=== PATIENT | male | born 1980 | race Caucasian/White ===

== ENCOUNTER 2022-10-03 04:26 | Emergency (ER) | payer OTHER ==
[2022-10-03 05:01] VITALS: BMI 25.1
[2022-10-03] MEDS ORDERED: ACETAMINOPHEN 1000 MG/100 ML BAG IVPB ONE (06:11)
[2022-10-03] MEDS ORDERED: SODIUM CHLORIDE 1,000 ML IV STA ×2 (06:11→12:20)
[2022-10-03 07:11] LABS: BASO % 0.6 % (0-2.0); EOS % 2.5 % (0-4.5); HEMATOCRIT 29.3 % (35.4-49); HEMOGLOBIN 9.7 GM/dL (11.7-16.9); LYMPH % 16.5 % (8-40); MCHC 33.2 g/dl (32.0-35.9); MEAN CELL VOLUME 87.3 fl (80-96); MEAN PLT VOLUME 8.9 fl (7.5-11.1); MONO % 9.1 % (3.8-10.2); NEUT % 71.3 % (42.8-82.8); PLATELET COUNT 325 10^3/uL (134-434); RBC 3.36 M/mm3 (4.00-5.60); RDW 13.7 % (11.9-15.9); WHITE BLOOD COUNT 8.8 K/mm3 (4.0-10.0)
[2022-10-03 07:29] LABS: CHLORIDE 103 mmol/L (98-107); SODIUM 137 mmol/L (136-145)
[2022-10-03 07:32] LABS: ALBUMIN 1.8 g/dl (3.4-5.0); BLOOD UREA NITROGEN 29.5 mg/dL (7-18); CALCIUM 8.7 mg/dL (8.5-10.1); CO2 27 mmol/L (21-32); GLUCOSE,RANDOM 124 mg/dL (74-106); LIPASE 438 U/L (73-393)
[2022-10-03 07:35] LABS: CREATININE 1.6 mg/dL (0.55-1.3); SGOT/AST 45 U/L (15-37); SGPT/ALT 20 U/L (13-61)
[2022-10-03 07:36] LABS: BILIRUBIN,TOTAL 0.4 mg/dL (0.2-1)
[2022-10-03 07:37] LABS: TOT PROT 6.2 g/dl (6.4-8.2)
[2022-10-03 07:38] LABS: ALK PHOS 88 U/L (45-117); ANION GAP 8 MMOL/L (8-16)
[2022-10-03] MEDS ORDERED: SODIUM PHOSPHATE/NA BIPHOS 133 ML ENEMA PR ONE (07:47)
[2022-10-03 12:19] LABS: EPI CELLS 3 /uL (0-25.1); HYALINE CASTS 0 /uL (0-3.1); PH,URINE 5.5 (5.0-8.0); URINE APPEARANCE CLOUDY; URINE BACTERIA 3824 /uL (0-1359); URINE BILIRUBIN NEGATIVE (NEGATIVE); URINE COLOR YELLOW; URINE GLUCOSE (UA) NEGATIVE (NEGATIVE); URINE KETONE NEGATIVE (NEGATIVE); URINE LEUK ESTERASE 3+ (NEGATIVE); URINE NITRITE NEGATIVE (NEGATIVE); URINE PROTEIN 3+ (NEGATIVE); URINE RBC 25 /uL (0-23.9); URINE UROBILINOGEN 0.2 mg/dL (0.2-1.0); URINE WBC 1601 /uL (0-25.8)
[2022-10-03] MEDS ORDERED: CEFTRIAXONE 1,000 MG in DEXTROSE 5%-WATER - 50 ML IVPB ONE (12:20)
[2022-10-03 12:47] LABS: BLOOD UREA NITROGEN 26.4 mg/dL (7-18)
[2022-10-03 12:49] LABS: CREATININE 1.4 mg/dL (0.55-1.3)
[2022-10-03] MEDS ORDERED: CEFTRIAXONE 1 GM/50 ML BAG ONE (13:06)
[2022-10-03 14:25] VITALS: BP 136/66; PULSE 60; RESP 18; TEMP 97.9
== END 2022-10-03 19:38 | disposition home or self-care (01) ==
LOC: JER 04:26 → UNDOADMOB 12:37 → JERBED 12:37 → UNDODISOB 13:01 → JER 19:38
PROC: 3E0333Z Introduction of Anti-inflammatory into Peripheral Vein, Percutaneous Approach (ICD-10-PCS; principal; 2022-10-03)
PROC: 3E033GC Introduction of Other Therapeutic Substance into Peripheral Vein, Percutaneous Approach (ICD-10-PCS; 2022-10-03)
PROC: 3E0337Z Introduction of Electrolytic and Water Balance Substance into Peripheral Vein, Percutaneous Approach (ICD-10-PCS; 2022-10-03)
PROC: 3E0337Z Introduction of Electrolytic and Water Balance Substance into Peripheral Vein, Percutaneous Approach (ICD-10-PCS; 2022-10-03)
DX: K56.7 Ileus, unspecified (principal); K59.00 Constipation, unspecified; R31.9 Hematuria, unspecified
CPT/HCPCS: 36415; 71045-TC-FY; 74176-TC; 80048; 80053; 81003; 83690; 85025; 87086; 87186; 93005; 93010; 99285-25

== ENCOUNTER 2022-10-04 06:46 | Emergency (ER) | payer OTHER ==
[2022-10-04 06:53] VITALS: RESP 18; BMI 25.8
[2022-10-04] MEDS ORDERED: LACTATED RINGERS SOLUTION 1000 ML INFUS.BAG IV ONE (09:38)
[2022-10-04 11:14] LABS: HEMATOCRIT 35.3 % (35.4-49); HEMOGLOBIN 11.4 GM/dL (11.7-16.9); MCHC 32.4 g/dl (32.0-35.9); MEAN CELL VOLUME 86.6 fl (80-96); MEAN PLT VOLUME 8.8 fl (7.5-11.1); PLATELET COUNT 320 10^3/uL (134-434); RBC 4.08 M/mm3 (4.00-5.60); RDW 13.7 % (11.9-15.9); WHITE BLOOD COUNT 15.1 K/mm3 (4.0-10.0)
[2022-10-04 11:38] LABS: BLOOD UREA NITROGEN 33.1 mg/dL (7-18)
[2022-10-04 11:41] LABS: CREATININE 1.7 mg/dL (0.55-1.3)
[2022-10-04] MEDS ORDERED: CIPROFLOXACIN 500 MG TABLET (RESTRICTED TO ID) PO ONE (11:42)
[2022-10-04 11:43] LABS: BILIRUBIN,TOTAL 0.3 mg/dL (0.2-1); TOT PROT 6.4 g/dl (6.4-8.2)
[2022-10-04 11:54] LABS: ALBUMIN 2.2 g/dl (3.4-5.0)
[2022-10-04 15:02] LABS: ANISOCYTOSIS 0; MACROCYTOSIS 0
[2022-10-04 18:02] VITALS: BP 120/94; PULSE 92; TEMP 98.6
== END 2022-10-04 18:17 | disposition home or self-care (01) ==
LOC: JER 06:46
DX: N39.0 Urinary tract infection, site not specified (principal); K59.00 Constipation, unspecified
CPT/HCPCS: 0241U-QW; 36415; 74176-TC; 80053; 83735; 85025; 99285-25; Q9967